=== PATIENT | male | born 1985 | race Caucasian/White ===

== ENCOUNTER 2019-04-13 08:30 | Emergency (ER) | payer BC, OTHER ==
[2019-04-13 08:36] VITALS: BP 133/71; PULSE 86
--- NOTE | 2019-04-13 09:29 | EDM.PDOC ---
ED HPI GENERAL MEDICAL PROBLEM - General Chief Complaint: ENT Problem Stated Complaint: left ear pain Time Seen by Provider: 04/13/19 09:04 Source of Information: Reports: Patient History Limitations: Reports: No Limitations - History of Present Illness INITIAL COMMENTS - FREE TEXT/NARRATIVE: 2-3 day history of increasing pain/swelling left ear. No fevers. No drainage. Tenderness down left side of neck. No other acute complaints. 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 Left Ear Pain Score (Numeric/FACES): 7 - Related Data Allergies Allergy/AdvReac Type Severity Reaction Status Date / Time No Known Allergies Allergy Verified 04/13/19 08:37 Home Meds: Home Meds Fluticasone Propionate [Flonase Allergy Relief] 2 spray NS DAILY PRN 09/21/14 [ History] Ibuprofen [Advil] 400 mg PO Q6HR PRN 09/21/14 [History] Loratadine [Claritin] 10 mg PO DAILY PRN 09/21/14 [History] Multivitamin [Multi-Vitamin Daily] 1 each PO DAILY 09/21/14 [History] cephALEXin [Keflex] 500 mg PO Q8H #12 cap 04/13/19 [Rx] Past Medical History - History Comment History Comment: environmental allergies Social & Family History - Tobacco Use Smoking Status *Q: Former Smoker Years of Tobacco use: 10 Packs/Tins Daily: 1 Used Tobacco, but Quit: Yes Month/Year Tobacco Last Used: 2011 Second Hand Smoke Exposure: No - Caffeine Use Caffeine Use: Reports: Coffee - Recreational Drug Use Recreational Drug Use: No ED ROS GENERAL - Review of Systems Review Of Systems: Comprehensive ROS is negative, except as noted in HPI. ED EXAM, GENERAL - Physical Exam Exam: See Below Exam Limited By: No Limitations General Appearance: Alert, WD/WN, Moderate Distress Eye Exam: Bilateral Eye: EOMI, PERRL Ears: Hearing Grossly Normal, Normal TMs, Other (Left ear mildly swollen, warm to touch. Small scabbed area noted near helix/mildly increased swelling in this area. No drainage noted. ) Nose: No: Nasal Deformity, Nasal Swelling, Nasal Drainage Throat/Mouth: Normal Lips, Normal Voice, No Airway Compromise Head: Atraumatic. No: Facial Swelling Neck: Supple, Lymphadenopathy (L), Other (tender with palpation over left lateral/posterior neck) Respiratory/Chest: No Respiratory Distress Extremities: Normal Range of Motion Neurological: Alert, Oriented, CN II-XII Intact, Normal Cognition, Normal Gait Psychiatric: Normal Affect, Normal Mood Skin Exam: Warm, Dry, Intact Course - Vital Signs Last Recorded V/S: Last Vital Signs Temp 36.5 C 04/13/19 08:31 Pulse 86 04/13/19 08:31 Resp 20 04/13/19 08:31 BP 133/71 04/13/19 08:31 Pulse Ox 96 04/13/19 08:31 - Re-Assessments/Exams Free Text/Narrative Re-Assessment/Exam: Infection/cellulitis left ear near helix. Keflex x 7days. Precautions reviewed. Follow up as needed. Work slip given for last night. Can give new works slip for tomorrow night if needed. Departure - Departure Time of Disposition: 09:28 Disposition: Home, Self-Care 01 Condition: Good Clinical Impression: Cellulitis of external ear Qualifiers: Laterality: left Qualified Code(s): H60.12 - Cellulitis of left external ear - Discharge Information *PRESCRIPTION DRUG MONITORING PROGRAM REVIEWED*: Not Applicable *COPY OF PRESCRIPTION DRUG MONITORING REPORT IN PATIENT LEVI: Not Applicable Prescriptions: cephALEXin [Keflex] 500 mg PO Q8H #12 cap Instructions: Cellulitis, Adult, [id number] Referrals: PCP,None [Primary Care Provider] - Forms: ED Department Discharge Additional Instructions: group therapy counselor additional Keflex and finish treatment. Follow up as needed if this worsens or if not significantly improved within 2-3 days Sepsis Event Note - Evaluation Sepsis Screening Result: No Definite Risk - Focused Exam Vital Signs: Vital Signs Temp Pulse Resp BP Pulse Ox 04/13/19 08:31 36.5 C 86 20 133/71 96 Date Exam was Performed: 04/13/19 Time Exam was Performed: 09:50
== END 2019-04-13 09:35 | disposition home or self-care (01) ==
LOC: LL.ED 08:30
DX: H60.12 Cellulitis of left external ear (principal); Z87.891 Personal history of nicotine dependence
CPT/HCPCS: 99282

== ENCOUNTER 2022-03-31 07:08 | Day surgery (SDC) | payer OTHER, BC ==
[~2022-03-31 07:08] MED LIST: Lactated Ringers 1,000 ML IV SCH; Sodium Chloride 0.9% 10 ML Syringe FLUSH PRN
[2022-03-31] MEDS ORDERED: fentaNYL 100 MCG/2 ML SDV ONE (07:18)
[2022-03-31] MEDS ORDERED: Midazolam 1 MG/ML 2 ML SDV ONE (07:18)
[2022-03-31] MEDS ORDERED: Propofol 200 MG/20 ML SDV ONE (07:18)
[2022-03-31] MEDS ORDERED: ceFAZolin 2 GM in Premix Bag 1 BAG IV ONE (08:15)
[2022-03-31] MEDS ORDERED: ceFAZolin 1 GM Vial IVPUSH ONE (08:15)
[2022-03-31] MEDS ORDERED: Lidocaine 1% 5 ML VIAL INJECT ONE (08:33)
[2022-03-31] MEDS ORDERED: Bupivacaine 0.25%/EPINEPHrine 1:200,000 30 ML SDV INJECT ONE (08:34)
[2022-03-31] MEDS ORDERED: Ketorolac 30 MG/ML SDV IVPUSH ONE (09:00)
[2022-03-31] MEDS ORDERED: Dexamethasone 10 MG/ML SDV IVPUSH ONE (09:00)
[2022-03-31] MEDS ORDERED: Ondansetron 4 MG/2 ML SDV IVPUSH ONE (09:00)
[2022-03-31 11:24] VITALS: BP 136/84; PULSE 89
== END 2022-03-31 10:55 | disposition home or self-care (01) ==
LOC: LL.SDS 07:08
PROVIDERS: ATTEND Surgery
DX: K42.9 Umbilical hernia without obstruction or gangrene (principal); F41.9 Anxiety disorder, unspecified; J30.9 Allergic rhinitis, unspecified; Z79.899 Other long term (current) drug therapy; Z98.890 Other specified postprocedural states; Z87.891 Personal history of nicotine dependence
CPT/HCPCS: J2250; J2704; J3010; J3490; J7120